=== PATIENT | male | born 1990 | race Caucasian/White ===

== ENCOUNTER 2017-09-29 18:03 | Emergency (ER) | payer OTHER ==
[2017-09-29] MEDS ORDERED: HYDROcod/ACETAM 5/325 MG TABLET PO STA (18:59)
--- NOTE | 2017-09-29 19:04 | ED Physician Documentation ---
PD HPI LOWER EXT INJURY - Stated complaint Stated Complaint: R ANKLE INJ - Chief complaint Chief Complaint: Trauma Ext - History obtained from History obtained from: Patient - History of Present Illness PD HPI LOW EXT INJURY LOCATION: Right, Ankle Type of injury: Other (Slipped on the stairs today and his right foot went under him and he has pain of the right ankle and unable to walk or bear weight, no other injuries.) Review of Systems Constitutional: reports: Reviewed and negative Throat: reports: Reviewed and negative Cardiac: reports: Reviewed and negative PD PAST MEDICAL HISTORY - Past Medical History Past Medical History: No - Past Surgical History Past Surgical History: No - Present Medications Home Medications: Ambulatory Orders Medication Instructions Recorded Confirmed HYDROcod/ACETAM 5/325 [[place] 5/325] 1 - 2 ea PO Q6H PRN #7 tablet 09/29/17 Ibuprofen [Motrin] 800 mg PO Q8H PRN #30 tablet 09/29/17 buPROPion [Wellbutrin Sr] 300 09/29/17 cloNIDine [Catapres] 0.2 09/29/17 - Allergies Allergies/Adverse Reactions: Allergies Allergy/AdvReac Type Severity Reaction Status Date / Time No Known Drug Allergies Allergy Verified 09/29/17 18:16 - Social History Does the pt smoke?: Yes Smoking Status: Current every day smoker Does the pt drink ETOH?: Yes Does the pt have substance abuse?: No PD ED PE NORMAL - Vitals Vital signs reviewed: Yes - General General: Alert and oriented X 3, No acute distress - Extremities Extremities: Other (Tender over the lateral malleolus and anterior ankle joint line, no medial malleolar tenderness or proximal Fibular tenderness, no foot tenderness.) - Neuro Neuro: Alert and oriented X 3, Normal speech Results - Vitals Vitals: Vital Signs - 24 hr 09/29/17 18:18 Temperature 37.6 C H Heart Rate 95 Respiratory 20 Rate Blood Pressure 130/81 H O2 Saturation 100 Oxygen O2 Source Room air - Rads (name of study) 3v R ankle Radiology: EMP read contemporaneously (normal) Departure - Departure Disposition: 01 Home, Self Care Clinical Impression: Right ankle sprain Qualifiers: Encounter type: initial encounter Involved ligament of ankle: calcaneofibular ligament Qualified Code(s): S93.411A - Sprain of calcaneofibular ligament of right ankle, initial encounter Condition: Good Record reviewed to determine appropriate education?: Yes Instructions: ED Sprain Ankle W X Ray Prescriptions: HYDROcod/ACETAM 5/325 [[place] 5/325] 1 - 2 ea PO Q6H PRN #7 tablet PRN Reason: Pain Ibuprofen [Motrin] 800 mg PO Q8H PRN #30 tablet PRN Reason: PAIN &/OR FEVER Comments: Follow-up with your doctor tomorrow as scheduled. Your blood pressure was elevated today on check into the emergency department. This does not mean that you have hypertension, it is a common phenomenon to come to the emergency department and have elevated blood pressure. I recommend that you see your primary care physician within the week to have it rechecked when you are feeling better. Do not drink or drive while taking narcotic pain medication. Note that many narcotic pain relievers also contain Tylenol/acetaminophen. Please ensure that your total dose of acetaminophen from all sources does not exceed 3 g (3000 mg) per day. You may get constipated while on this medication. Take a stool softener such as Colace twice a day while you are on it. Also add an [id number]-uncemyl laxative such as senna or MiraLAX on any day that you do not have a bowel movement. If you received a narcotic pain medication or sedative while in the emergency department, do not drive for the next 24 hours. Forms: Activity restrictions
--- NOTE | 2017-09-29 19:07 | XRAY Preliminary Report ---
Exam: XR ANKLE 3 VIEW RT IMPRESSION: No fracture or subluxation. [facility] SITE ID: [id number]
--- NOTE | 2017-09-29 19:09 | XRAY Report ---
EXAM: RIGHT ANKLE RADIOGRAPHY EXAM DATE: 09/29/2017 06:33 PM. CLINICAL HISTORY: Pain. COMPARISON: None. TECHNIQUE: 3 views. FINDINGS: Bones: Normal. No fractures or bone lesions. Joints: Joint space and alignment appears satisfactory. Soft Tissues: There is lateral ankle soft tissue swelling. IMPRESSION: No fracture or subluxation. [facility] Referring Provider Line: [phone] SITE ID: [id number]
[2017-09-29] MEDS ORDERED: HYDROcod/ACETAM 5/325 MG TABLET ONE (19:16)
[2017-09-29 19:20] VITALS: BP 134/81
== END 2017-09-29 19:20 | disposition home or self-care (01) ==
LOC: ED 18:03
DX: S93.411A Sprain of calcaneofibular ligament of right ankle, initial encounter (principal); W10.9XXA Fall (on) (from) unspecified stairs and steps, initial encounter; R03.0 Elevated blood-pressure reading, without diagnosis of hypertension; F17.200 Nicotine dependence, unspecified, uncomplicated
CPT/HCPCS: 73610; 99282; 99283; A9270

== ENCOUNTER 2019-05-07 12:49 | Emergency (ER) | payer OTHER ==
--- NOTE | 2019-05-07 13:50 | ED Physician Documentation ---
PD HPI ABD PAIN - Stated complaint Stated Complaint: ABD PX - Chief complaint Chief Complaint: Abd Pain - History obtained from History obtained from: Patient - History of Present Illness Timing - onset: Other (Several months of bilateral crampy low abd pain, worse x 4 weeks. Worse in the monring and with bending or coughing. Nl BM this AM. No N/V/D. Pain also with urination.) Review of Systems Ten Systems: 10 systems reviewed and negative Constitutional: denies: Fever, Chills Cardiac: denies: Chest pain / pressure, Palpitations Respiratory: denies: Dyspnea, Cough PD PAST MEDICAL HISTORY - Past Surgical History Past Surgical History: No - Present Medications Home Medications: Ambulatory Orders Medication Instructions Recorded Confirmed Ibuprofen [Motrin] 800 mg PO Q8H PRN #30 tablet 09/29/17 RX: cloNIDine [Catapres] 0.2 09/29/17 buPROPion [Wellbutrin Sr] 300 09/29/17 Ciprofloxacin HCl [Cipro] 500 mg PO BID #30 tablet 05/07/19 Guanfacine HCl [Guanfacine HCl ER] 1 mg PO DAILY 05/07/19 05/07/19 Hydrocodone/Acetaminophen 1 - 2 each PO Q6H PRN #14 tablet 05/07/19 [Hydrocodon-Acetaminophen 5-325] - Allergies Allergies/Adverse Reactions: Allergies Allergy/AdvReac Type Severity Reaction Status Date / Time No Known Drug Allergies Allergy Verified 09/29/17 18:16 - Social History Does the pt smoke?: Yes Smoking Status: Current every day smoker Does the pt drink ETOH?: Yes Does the pt have substance abuse?: No PD ED PE NORMAL - Vitals Vital signs reviewed: Yes - General General: Alert and oriented X 3, No acute distress - Cardiac Cardiac: RRR, No murmur - Respiratory Respiratory: No respiratory distress, Clear bilaterally - Abdomen Abdomen: Normal bowel sounds, Soft, Non tender - Male Male : Other (Prostate TTP, not enlarged.) - Back Back: No CVA TTP, No spinal TTP - Derm Derm: Normal color, Warm and dry - Neuro Neuro: Alert and oriented X 3, Normal speech - Psych Psych: Normal mood, Normal affect Results - Vitals Vitals: Vital Signs - 24 hr 05/07/19 05/07/19 13:14 15:27 Temperature 36.9 C Heart Rate 113 H 78 Respiratory 16 16 Rate Blood Pressure 141/90 H 153/79 H O2 Saturation 100 Oxygen O2 Source Room air - Labs Labs: Laboratory Tests 05/07/19 05/07/19 05/07/19 14:10 14:10 Unknown WBC 8.4 RBC 5.48 Hgb 16.0 Hct 49.6 MCV 90.5 MCH 29.2 MCHC 32.3 RDW 12.9 Plt Count 295 MPV 9.4 Neut # (Auto) 5.1 Lymph # (Auto) 2.5 [place] # (Auto) 0.6 Eos # (Auto) 0.2 Baso # (Auto) 0.1 Absolute Nucleated RBC 0.00 Nucleated RBC % 0.0 Sodium 139 Potassium 4.4 Chloride 101 Carbon Dioxide 27 Anion Gap 11.0 BUN 19 Creatinine 0.9 Estimated GFR (MDRD) 102 Glucose 97 Calcium 9.4 Total Bilirubin 0.9 AST 17 ALT 21 Alkaline Phosphatase 51 Total Protein 8.4 H Albumin 4.7 Globulin 3.7 Albumin/Globulin Ratio 1.3 Lipase 27 Urine Color YELLOW Urine Clarity CLEAR Urine pH 5.5 Ur Specific [place] >=1.030 H Urine Protein NEGATIVE Urine Glucose (UA) NEGATIVE Urine Ketones TRACE Urine Occult Blood NEGATIVE Urine Nitrite NEGATIVE Urine Bilirubin NEGATIVE Urine Urobilinogen 0.2 (NORMAL) Ur Leukocyte Esterase TRACE H Urine RBC 0-5 Urine WBC 4-5 Ur Squamous Epith Cells NONE SEEN Urine Bacteria Few Urine Mucus Few Strands Urine Sperm PRESENT Ur Microscopic Review INDICATED Urine Culture Comments INDICATED - Rads (name of study) CT A/P Radiology: EMP read contemporaneously (normal) PD MEDICAL DECISION MAKING - ED course ED course: 28-year-old gentleman with progressive lower abdominal pain, found to have prostatitis on exam, trace leukocyte esterase and urine analysis, work-up otherwise negative. Treated with Cipro. Discussed the need to abstain from heavy physical activity due to tendinopathy. Departure - Departure Disposition: 01 Home, Self Care Clinical Impression: Prostatitis Condition: Good Record reviewed to determine appropriate education?: Yes Health Concerns: Lower abdominal pain of several months that is worsening Plan of Treatment: Found to have prostatitis on work-up, will treat with antibiotics. Care Goals: Improved pain and get rid of infection Assessment: as above Instructions: ED Prostatitis Prescriptions: Ciprofloxacin HCl [Cipro] 500 mg PO BID #30 tablet Hydrocodone/Acetaminophen [Hydrocodon-Acetaminophen 5-325] 1 - 2 each PO Q6H PRN #14 tablet PRN Reason: pain Comments: Call your doctor to arrange a follow-up appointment, make the next available appointment. In the interim, return anytime if worse or if new symptoms develop. Your blood pressure was elevated today on check into the emergency department. This does not mean that you have hypertension, it is a common phenomenon to come to the emergency department and have elevated blood pressure. I recommend that you see your primary care physician within the week to have it rechecked when you are feeling better. Forms: Activity restrictions Discharge Date/Time: 05/07/19 15:28
[2019-05-07 14:03] LABS: BILIRUBIN,URINE NEGATIVE (NEGATIVE); GLUCOSE, URINE (UA) NEGATIVE (NEGATIVE); KETONES,URINE (UA) TRACE mg/dL (NEGATIVE); LEUKOCYTE ESTERASE, URINE TRACE (NEGATIVE); NITRITE,URINE NEGATIVE (NEGATIVE); OCCULT BLOOD,URINE NEGATIVE (NEGATIVE); PH,URINE 5.5 PH (5.0-7.5); PROTEIN,URINE NEGATIVE (NEGATIVE); UROBILINOGEN,URINE 0.2 (NORMAL) E.U./dL (NORMAL)
[2019-05-07 14:10] LABS: CLARITY,URINE CLEAR (CLEAR)
[2019-05-07 14:11] LABS: BACTERIA,URINE Few /HPF (None Seen); RBC,URINE 0-5 /HPF (0-5); SQUAMOUS EPITHELIAL CELL,UR NONE SEEN (<= Few)
[2019-05-07 14:12] LABS: MUCUS,URINE Few Strands; SPERM,URINE PRESENT
[2019-05-07] MEDS ORDERED: IOVERSOL 320 100 ML VIAL IVP ONE ×2 (14:15→14:50)
[2019-05-07 14:16] LABS: BASOPHILS # (AUTO) 0.1 10^3/uL (0.0-0.1); BASOPHILS % (AUTO) 0.7 %; EOSINOPHILS # (AUTO) 0.2 10^3/uL (0.0-0.7); EOSINOPHILS % (AUTO) 2.3 %; LYMPHOCYTES # (AUTO) 2.5 10^3/uL (1.5-3.5); LYMPHOCYTES % (AUTO) 29.4 %; MEAN CORPUSCULAR HEMOGLOBIN 29.2 pg (27.0-31.0); MEAN CORPUSCULAR HGB CONC 32.3 g/dL (32.0-36.0); MEAN CORPUSCULAR VOLUME 90.5 fL (80.0-94.0); MEAN PLATELET VOLUME 9.4 fL (7.4-11.4); MONOCYTES # (AUTO) 0.6 10^3/uL (0.0-1.0); MONOCYTES % (AUTO) 6.9 %; NEUTROPHILS # (AUTO) 5.1 10^3/uL (1.5-6.6); NEUTROPHILS % (AUTO) 60.5 %; PLT - PLATELET COUNT 295 10^3/uL (130-450); RED BLOOD COUNT 5.48 10^6/uL (4.70-6.10); RED CELL DISTRIBUTION WIDTH 12.9 % (12.0-15.0); WHITE BLOOD COUNT 8.4 x10^3/uL (4.8-10.8)
[2019-05-07 14:29] LABS: ALBUMIN 4.7 g/dL (3.2-5.5); ALBUMIN/GLOBULIN RATIO 1.3 (1.0-2.2); BILIRUBIN,TOTAL 0.9 mg/dL (0.2-1.0); CALCIUM 9.4 mg/dL (8.5-10.3); CREATININE 0.9 mg/dL (0.6-1.2); TOTAL PROTEIN 8.4 g/dL (6.7-8.2)
--- NOTE | 2019-05-07 15:05 | CT Report ---
Reason: IV only, low abd pain Procedure Date: 05/07/2019 Accession Number: [id number] / [id number] Procedure: CT - Abdomen/Pelvis W CPT Code: FULL RESULT: EXAM: CT ABDOMEN AND PELVIS EXAM DATE: 05/07/2019 02:48 PM. CLINICAL HISTORY: IV only, low abd pain. COMPARISONS: None. TECHNIQUE: Routine helical CT imaging was performed through the abdomen and pelvis. IV contrast: . Enteric contrast: No. Reconstructions: Coronal and sagittal. In accordance with CT protocol optimization, one or more of the following dose reduction techniques were utilized for this exam: automated exposure control, adjustment of mA and/or KV based on patient size, or use of iterative reconstructive technique. FINDINGS: Lung Bases: Unremarkable. Liver: Normal. No masses. Gallbladder/Bile Ducts: Unremarkable. Spleen: Normal. Pancreas: Normal. Adrenal Glands: Normal. Kidneys: Normal. No masses or hydronephrosis. Peritoneal Cavity/Bowel: Normal. No free fluid, free air or adenopathy. No masses or acute inflammatory process. Appendix not definitively visualized on right lower quadrant. Pelvic Organs: Normal. The bladder and visualized pelvic organs are within normal limits. Vasculature: No aneurysms or other significant abnormality. Bones: No significant abnormality. Other: None. IMPRESSION: Appendix not definitively visualized right lower quadrant. No bowel obstruction or inflammation. No nephrolithiasis or hydronephrosis. No acute abdominal pathology. [facility]
[2019-05-07] MEDS ORDERED: CIPROFLOXACIN 250 MG TABLET PO STA (15:11)
[2019-05-07] MEDS ORDERED: HYDROcod/ACETAM 5/325 MG TABLET PO STA (15:11)
[2019-05-07 15:28] VITALS: BP 153/79
[2019-05-07 20:53] LABS: TRICHOMONAS VAGINALIS DNA NEGATIVE (NEGATIVE)
== END 2019-05-07 15:28 | disposition home or self-care (01) ==
LOC: ED 12:49
DX: N41.9 Inflammatory disease of prostate, unspecified (principal); R03.0 Elevated blood-pressure reading, without diagnosis of hypertension; F17.200 Nicotine dependence, unspecified, uncomplicated
CPT/HCPCS: 36415; 74177; 80053; 81001; 83690; 85025; 87086; 87491; 87591; 87661; 99283; A9270; Q9967; 81003